=== PATIENT | female | born 1995 | race Caucasian/White ===

== ENCOUNTER 2019-12-20 12:38 | Emergency (ER) | payer OTHER ==
[~2019-12-20] VITALS: Ht 160 cm; Wt 74.8 kg
[2019-12-20] MEDS ORDERED: Permethrin60 GM UD (13:13)
== END 2019-12-20 13:30 | disposition home or self-care (01) ==
LOC: ER 12:38
DX: B86 Scabies (principal); B37.3 Candidiasis of vulva and vagina; Z91.040 Latex allergy status; Z88.2 Allergy status to sulfonamides
CPT/HCPCS: 99282